=== PATIENT | male | born 1970 | race Two or more races ===

== ENCOUNTER 2024-07-17 11:17 | Emergency (ER) | payer OTHER ==
[~2024-07-17] VITALS: Ht 180.3 cm; Wt 104.3 kg
[2024-07-17 11:31] VITALS: BP 160/96; TEMP 98.2; O2SAT 97
[2024-07-17] MEDS ORDERED: CEPH-570 PO (11:41)
[2024-07-17] MEDS ORDERED: DOXY100T2 PO (11:41)
== END 2024-07-17 12:04 | disposition home or self-care (01) ==
LOC: ER 11:26
DX: S61.243A Puncture wound with foreign body of left middle finger without damage to nail, initial encounter (principal); E11.9 Type 2 diabetes mellitus without complications; W25.XXXA Contact with sharp glass, initial encounter; Y93.89 Activity, other specified; Y92.89 Other specified places as the place of occurrence of the external cause; Y99.8 Other external cause status
CPT/HCPCS: 73140-TC